=== PATIENT | male | born 1940 | race Caucasian/White ===

== ENCOUNTER 2019-02-11 08:00 | Emergency (ER) | payer MEDICARE ==
[~2019-02-11] VITALS: Ht 180.3 cm; Wt 95.7 kg
--- OUTSIDE RECORDS SUMMARY | 2019-02-11 08:03 | XMS REPORT ---
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 Allergies, Adverse Reactions, Alerts Allergy Name Allergy Type Status Severity Reaction(s) Onset Date Inactive Date Treating Clinician Comments No Known Allergies DA Active U 2018-10-28 00:00:00 No Known Allergies DA Active U 2013-02-14 00:00:00 Medications This patient has no known medications. Results Test Description Test Time Test Comments Text Results Atomic Results Result Comments - XR FLUOROSCOPY 0-60 MIN 2018-12-18 12:18:00 FAX: Oren Benoit [phone] Gray: St: ADM Name: JAZMYNE POWER [facility] : 1940 Age/S: 78/M [address] [place] [address] Unit #: [id number] Loc: [place] [address] Phys: Oren Reed MD Acct: [id number] Dis Date: Status: ADM IN PHONE #: [phone] Exam Date: 12/18/2018 1214 FAX #: [phone] Reason: LUMBAR DISC HERNIATION, LUMBAR STENOSIS EXAMS: CPT CODE: [id number] XR FLUOROSCOPY 0-60 MIN 01487 Intraprocedural fluoroscopy was provided by the Department of Radiology. Any images obtained were interpreted by the surgeon intraoperatively. SL: [id number] at 1218 Reported and signed by: Manpreet Mosher M.D. CC: Oren Reed MD Technologist: RT Lisa(Tiffanie) Trnscrd Date/Time/By: 12/18/2018 (3192) : By: [email or web address] Orig Print D/T: S: 12/18/2018 (1805) PAGE 1 Signed Report PROTHROMBIN TIME 2018-12-15 11:45:00 PROTHROMBIN TIME PATIENT (test code=PTP) 12.1 SECONDS 9.3-12.9 INTERNATIONAL NORMAL RATIO (test code=INR) 1.1 0.8-1.2 TARGET INR BY INDICATION Indication INR1. Prophylaxis of venous thrombosis 2.0 - 3.0 (orthopedic surgery), Prophylaxis of venous thrombosis (other than high-risk surgery), Treatment of Deep Vein Thrombosis/Pulmonary Embolism, Prevention of systemic embolism - Tissue heart valves, Acute Myocardial Infarction (to prevent systemic embolism), Valvular heart disease, Atrial Fibrillation, Bileaflet mechanical valve in aortic position.2. Mechanical prosthetic valves (high risk), 2.5 - 3.5 Presence of Lupus Anticoagulant or Antiphospholipid Antibodies, Prevention of systemic embolism - Acute Myocardial Infarction (to prevent recurrent infarct). THROMBOPLASTIN TIME [id number] 11:45:00* Test Item Value Reference Range Comments THROMBOPLASTIN TIME PARTIAL (test code=PTT) 37.6 Seconds 25.0-39.5 Therapeutic Range: 61.8-83.8 Sec Effective 10/28/2013 COMPREHENSIVE METABOLIC [id number] 11:41:00* Test Item Value Reference Range Comments SODIUM (test code=NA) 138 mEq/L 134-147 POTASSIUM (test code=K) 3.9 mEq/L 3.4-5.0 CHLORIDE (test code=CL) 103 mEq/L 100-108 CARBON DIOXIDE (test code=CO2) 31 mEq/L 21-33 ANION GAP (test code=GAP) 8 0-20 GLUCOSE (test code=GLU) 83 mg/dL 70-110 BLOOD UREA NITROGEN (test code=BUN) 15 mg/dL 7-18 GLOMERULAR FILTRATION RATE (test code=GFR) 81.6 70-80 Units of measure=ml/min/1.73 m2 CREATININE (test code=CREAT) 0.9 mg/dL 0.6-1.3 TOTAL PROTEIN (test code=PROT) 7.2 g/dL 6.4-8.2 ALBUMIN (test code=ALB) 3.90 g/dL 3.4-5.0 CALCIUM (test code=CA) 9.0 mg/dL 8.0-10.5 BILIRUBIN TOTAL (test code=BILT) 1.90 mg/dL 0.0-1.0 SGOT/AST (test code=AST) 17 IUnit/L 15-37 SGPT/ALT (test code=ALT) 32 IUnit/L 15-65 ALKALINE PHOSPHATASE TOTAL (test code=ALKP) 54 IUnit/L 20-125 COMPREHENSIVE METABOLIC [id number] 11:40:00* Test Item Value Reference Range Comments SODIUM (test code=NA) 138 mEq/L 134-147 POTASSIUM (test code=K) 3.9 mEq/L 3.4-5.0 CHLORIDE (test code=CL) 103 mEq/L 100-108 CARBON DIOXIDE (test code=CO2) 31 mEq/L 21-33 ANION GAP (test code=GAP) 8 0-20 GLUCOSE (test code=GLU) 83 mg/dL 70-110 BLOOD UREA NITROGEN (test code=BUN) 15 mg/dL 7-18 GLOMERULAR FILTRATION RATE (test code=GFR) 81.6 70-80 Units of measure=ml/min/1.73 m2 CREATININE (test code=CREAT) 0.9 mg/dL 0.6-1.3 TOTAL PROTEIN (test code=PROT) g/dL 6.4-8.2 ALBUMIN (test code=ALB) 3.90 g/dL 3.4-5.0 CALCIUM (test code=CA) 9.0 mg/dL 8.0-10.5 BILIRUBIN TOTAL (test code=BILT) mg/dL 0.0-1.0 SGOT/AST (test code=AST) 17 IUnit/L 15-37 SGPT/ALT (test code=ALT) 32 IUnit/L 15-65 ALKALINE PHOSPHATASE TOTAL (test code=ALKP) IUnit/L 20-125 CBC W/AUTO [id number] 11:26:00* Test Item Value Reference Range Comments WHITE BLOOD CELL (test code=WBC) 7.23 x10 3/uL 4.5-11.0 RED BLOOD CELL (test code=RBC) 5.83 x10 6/uL 4.00-5.60 HEMOGLOBIN (test code=HGB) 18.6 g/dL 12.5-16.9 HEMATOCRIT (test code=HCT) 58.7 % 37.5-50.7 NOTIFIED OF ANTICOAGULANT MEAN CELL VOLUME (test code=MCV) 100.7 fL 81.0-99.0 MEAN CELL HGB (test code=MCH) 31.9 pg 27.0-33.0 MEAN CELL HGB CONCETRATION (test code=MCHC) 31.7 g/dL 33.0-37.0 RED CELL DISTRIBUTION WIDTH CV (test code=RDW) 14.8 % 11.5-14.5 RED CELL DISTRIBUTION WIDTH SD (test code=RDW-SD) 55.6 fL 37.0-54.0 PLATELET COUNT (test code=PLT) 179 x10 3/uL 150-400 MEAN PLATELET VOLUME (test code=MPV) 9.3 fL 7.0-9.0 NEUTROPHIL % (test code=NT%) 73.5 % 56.0-77.0 IMMATURE GRANULOCYTE % (test code=IG%) 1.7 % 0.0-2.0 LYMPHOCYTE % (test code=LY%) 13.3 % 14.0-32.0 MONOCYTE % (test code=MO%) 9.8 % 4.8-9.0 EOSINOPHIL % (test code=EO%) 1.1 % 0.3-3.7 BASOPHIL % (test code=BA%) 0.6 % 0.0-2.0 NUCLEATED RBC % (test code=NRBC%) 0.0 % 0-0 NEUTROPHIL # (test code=NT#) 5.32 x10 3/uL 2.0-7.6 IMMATURE GRANULOCYTE # (test code=IG#) 0.12 x10 3/uL 0.00-0.03 LYMPHOCYTE # (test code=LY#) 0.96 x10 3/uL 1.0-3.8 MONOCYTE # (test code=MO#) 0.71 x10 3/uL 0.1-0.8 EOSINOPHIL # (test code=EO#) 0.08 x10 3/uL 0.0-0.2 BASOPHIL # (test code=BA#) 0.04 x10 3/uL 0.0-0.2 NUCLEATED RBC # (test code=NRBC#) 0.00 x10 3/uL 0.0-0.1 MANUAL DIFF REQUIRED (test code=MDIFF) NO - XR CHEST 2 [id number] 11:02:00 FAX: Oren Benoit [phone] Gray: St: PRE Name: RYLEE BUNDYER BREANA [facility] : [birth year] Age/S: 78/M [address] [place] [address] Bl Unit #: [id number] Loc: [place] [address] Phys: Oren Reed MD Acct: [id number] Dis Date: Status: PRE IN PHONE #: [phone] Exam Date: 12/15/2018 1056 FAX #: [phone] Reason: LAMINECTOMY EXAMS: CPT CODE: [id number] XR CHEST 2 V 24784 EXAM: XR CHEST 2 VIEWS DATE: 12/15/2018 10:21 AM : 1940; Age: 78 years y/o Male INDICATION: LAMINECTOMY COMPARISON: October 28, 2018 TECHNIQUE: PA and lateral chest radiographs. FINDINGS: Lines, tubes and hardware: None. Lungs and pleura: The lungs are clear. Elevated right hemidiaphragm again seen. No pleural effusion. Heart and mediastinum: The heart size is normal for technique. Vascular calcifications are present at the aorta. Pulmonary vascularity is normal. IMPRESSION: No acute cardiopulmonary process. SL: [id number] at 1102 Reported and signed by: Robin Whitfield D.O. CC: Oren Reed MD Technologist: RT Rayray(R) Trnscrd Date/Time/By: 12/15/2018 (9782) : By: [email or web address] Orig Print D/T: S: 12/15/2018 (6442) PAGE 1 Signed Report - XR CHEST 2 [id number] 13:55:00 FAX: Belen Madden MD [phone] Gray: St: PRE Name: JAZMYNE BUNDY [facility] : [birth year] Age/S: 78/M [address] [place] [address] Blvd Unit #: [id number] Loc: [place] [address] Phys: Belen Singletary MD Acct: [id number] Dis Date: Status: PRE [facility] PHONE #: [phone] Exam Date: 10/28/2018 1341 FAX #: [phone] Reason: PREOP/+ STRESS TEST EXAMS: CPT CODE: [id number] XR CHEST 2 V 25771 2 VIEW CXR H ISTORY: Preop chest x-ray. Positive stress test. Coronary artery disease . COMPARISON: 05/12/2012 chest x-ray. Stable right he midiaphragm elevation. Lungs clear with normal pulmonary vascularity. No pleural abnormalities. Cardiomediastinal silhouette and bony thorax norm al. IMPRESSION: No acute process evident. END IMPRESSION [id number] Electronically Signed by Sinan Rios on at 1939 Reported and signed by: Jim Rios M.D. CC: Belen Rouse Technologist: RT Jazmín(R), RTT Trnctrd Date/Time/By: 10/28/2018 (2871) : By: [email or web address] Orig Print D/T : S: 10/28/2018 (4771) PAGE 1 Sig shea Report BASIC METABOLIC [id number] 13:35:00* Test Item Value Reference Range Comments SODIUM (test code=NA) 138 mEq/L 134-147 POTASSIUM (test code=K) 4.0 mEq/L 3.4-5.0 CHLORIDE (test code=CL) 104 mEq/L 100-108 CARBON DIOXIDE (test code=CO2) 27 mEq/L 21-33 ANION GAP (test code=GAP) 11 0-20 GLUCOSE (test code=GLU) 75 mg/dL 70-110 BLOOD UREA NITROGEN (test code=BUN) 18 mg/dL 7-18 GLOMERULAR FILTRATION RATE (test code=GFR) 81.6 70-80 Units of measure=ml/min/1.73 m2 CREATININE (test code=CREAT) 0.9 mg/dL 0.6-1.3 CALCIUM (test code=CA) 8.8 mg/dL 8.0-10.5 PROTHROMBIN [id number] 13:27:00* Test Item Value Reference Range Comments PROTHROMBIN TIME PATIENT (test code=PTP) 12.1 SECONDS 9.3-12.9 INTERNATIONAL NORMAL RATIO (test code=INR) 1.1 0.8-1.2 TARGET INR BY INDICATION Indication INR1. Prophylaxis of venous thrombosis 2.0 - 3.0 (orthopedic surgery), Prophylaxis of venous thrombosis (other than high-risk surgery), Treatment of Deep Vein Thrombosis/Pulmonary Embolism, Prevention of systemic embolism - Tissue heart valves, Acute Myocardial Infarction (to prevent systemic embolism), Valvular heart disease, Atrial Fibrillation, Bileaflet mechanical valve in aortic position.2. Mechanical prosthetic valves (high risk), 2.5 - 3.5 Presence of Lupus Anticoagulant or Antiphospholipid Antibodies, Prevention of systemic embolism - Acute Myocardial Infarction (to prevent recurrent infarct). CBC W/AUTO [id number] 13:21:00* Test Item Value Reference Range Comments WHITE BLOOD CELL (test code=WBC) 6.96 x10 3/uL 4.5-11.0 RED BLOOD CELL (test code=RBC) 5.83 x10 6/uL 4.00-5.60 HEMOGLOBIN (test code=HGB) 18.5 g/dL 12.5-16.9 HEMATOCRIT (test code=HCT) 57.4 % 37.5-50.7 MEAN CELL VOLUME (test code=MCV) 98.5 fL 81.0-99.0 MEAN CELL HGB (test code=MCH) 31.7 pg 27.0-33.0 MEAN CELL HGB CONCETRATION (test code=MCHC) 32.2 g/dL 33.0-37.0 RED CELL DISTRIBUTION WIDTH CV (test code=RDW) 13.1 % 11.5-14.5 RED CELL DISTRIBUTION WIDTH SD (test code=RDW-SD) 47.9 fL 37.0-54.0 PLATELET COUNT (test code=PLT) 194 x10 3/uL 150-400 MEAN PLATELET VOLUME (test code=MPV) 9.6 fL 7.0-9.0 NEUTROPHIL % (test code=NT%) 68.2 % 56.0-77.0 IMMATURE GRANULOCYTE % (test code=IG%) 0.6 % 0.0-2.0 LYMPHOCYTE % (test code=LY%) 17.5 % 14.0-32.0 MONOCYTE % (test code=MO%) 11.1 % 4.8-9.0 EOSINOPHIL % (test code=EO%) 1.7 % 0.3-3.7 BASOPHIL % (test code=BA%) 0.9 % 0.0-2.0 NUCLEATED RBC % (test code=NRBC%) 0.0 % 0-0 NEUTROPHIL # (test code=NT#) 4.75 x10 3/uL 2.0-7.6 IMMATURE GRANULOCYTE # (test code=IG#) 0.04 x10 3/uL 0.00-0.03 LYMPHOCYTE # (test code=LY#) 1.22 x10 3/uL 1.0-3.8 MONOCYTE # (test code=MO#) 0.77 x10 3/uL 0.1-0.8 EOSINOPHIL # (test code=EO#) 0.12 x10 3/uL 0.0-0.2 BASOPHIL # (test code=BA#) 0.06 x10 3/uL 0.0-0.2 NUCLEATED RBC # (test code=NRBC#) 0.00 x10 3/uL 0.0-0.1 MANUAL DIFF REQUIRED (test code=MDIFF) NO
[2019-02-11] MEDS ORDERED: SODIUM CHLORIDE 0.9% 1000ML 1,000 ML IV STA (08:21)
--- NOTE | 2019-02-11 08:33 | NUR ---
PATIENT TO ROOM 4
--- NOTE | 2019-02-11 09:27 | NUR ---
Note neville in EDM - 02/11/19 at [address] ZAVALETA AT BEDSIDE EVALUATING PATIENT. PER HIS ORDERS. THE IgG 300 ML HE ORDERED IS TO RUN OVER 24 HR PERIOD. PHARMACY SENT A 200ML/100ML BOTTLES. WILL RUN AT 12.5ML/HR (0.289MG/KG/MIN)
[2019-02-11 09:28] LABS: BASOPHILS % 0.2 % (0.0-1.0); EOSINOPHILS # (AUTO) 0.3 (0.0-0.4); EOSINOPHILS % 1.6 % (0.0-6.0); HEMATOCRIT 50.9 % (38.2-49.6); HEMOGLOBIN 17.4 g/dL (14.0-18.0); LYMPHOCYTES # (AUTO) 0.5 (1.0-3.2); LYMPHOCYTES % 2.8 % (18.0-39.1); MEAN CORPUSCULAR HEMOGLOBIN 33.6 pg (28-32); MEAN CORPUSCULAR HGB CONC 34.2 g/dL (31-35); MEAN CORPUSCULAR VOLUME 98.3 fL (81-99); MONOCYTES # (AUTO) 1.2 (0.2-0.8); MONOCYTES % 7.7 % (4.4-11.3); NEUTROPHILS % 87.1 % (38.7-80.0); PLATELET COUNT 165 x10e3/uL (140-360); RED BLOOD COUNT 5.18 x10e6/uL (4.3-5.7)
[2019-02-11 09:38] LABS: INR 0.99; PROTHROMBIN TIME 13.6 seconds (11.9-14.5)
[2019-02-11 09:39] LABS: PARTIAL THROMBOPLASTIN TIME 26.4 seconds (23.8-35.5)
[2019-02-11 09:45] LABS: ALANINE AMINOTRANSFERASE 23 IU/L (0-55); ALBUMIN 3.4 g/dL (3.5-5.0); ALBUMIN/GLOBULIN RATIO 1.2 (0.8-2.0); ALKALINE PHOSPHATASE 48 IU/L (40-150); ANION GAP 13.7 mmol/L (8-16); BLOOD UREA NITROGEN 12 mg/dL (7-26); BUN/CREATININE RATIO 14 (6-25); CALCIUM 9.6 mg/dL (8.4-10.2); CARBON DIOXIDE 27 mmol/L (22-29); CHLORIDE 102 mmol/L (98-107); CREATININE, SERUM 0.84 mg/dL (0.72-1.25); EST GLOMERULAR FILTRATION RATE > 60 ML/MIN (60-); GLUCOSE 111 mg/dL (74-118); POTASSIUM 3.7 mmol/L (3.5-5.1); SODIUM 139 mmol/L (136-145)
[2019-02-11 09:46] LABS: BILIRUBIN,URINE NEGATIVE (NEGATIVE); CLARITY,URINE TURBID (CLEAR); COLOR,URINE RED (YELLOW); KETONES,URINE NEGATIVE (NEGATIVE); LEUKOCYTE ESTERASE ,URINE 1+ (NEGATIVE); NITRITE,URINE NEGATIVE (NEGATIVE); PROTEIN,URINE DIPSTICK 3+ (NEGATIVE); URINE UROBILINOGEN 0.2 mg/dL (0.2 - 1)
[2019-02-11 10:00] LABS: BACTERIA,URINE RARE /HPF; EPITHELIAL CELLS,URINE RARE /LPF; RBC,URINE 21-50 /HPF (0-5)
--- NOTE | 2019-02-11 10:36 | NUR ---
WHILE IN E.R. NO NOTED CLOTS IN TUB OR LOUISE BAG PER PATIENT HE DOES KNOW HOW TO FLUSH THE CATHETER, BUT DID NOT KNOW THAT IS WHAT HE WAS SUPPOSE TO DO, AND HE DID NOT SEE THE CLOTS, HE ONLY SAW BLOOD
--- NOTE | 2019-02-11 11:53 | NUR ---
PATIENT UPSET HE IS STILL HERE. DR. BARLOW SPOKE WITH DR. BALDERRAMA WHO IS IN SURGERY AND HE WANTS TO SEE HIM FIRST BEFORE HE GOES HOME.
--- NOTE | 2019-02-11 12:00 | NUR ---
DR. Jaquan BALDERRAMA AT BEDSIDE IRRIGATING PATIENT LOUISE WITH 650 CC. PULLED OUT SEVERAL SMALL CLOTS. PATIENT RE-INSTRUCTED ON HOW TO IRRIGATE WHEN HE NOTICES CLOTS
== END 2019-02-11 13:00 | disposition home or self-care (01) ==
LOC: ER 08:00
DX: R31.0 Gross hematuria (principal); I10 Essential (primary) hypertension; R01.1 Cardiac murmur, unspecified
CPT/HCPCS: 36415; 80053; 81001; 85025; 85610; 85730; 99284; J7030

== ENCOUNTER 2019-02-13 08:24 | Emergency (ER) | payer MEDICARE ==
[~2019-02-13] VITALS: Ht 180.3 cm; Wt 95.7 kg
[2019-02-13 09:34] LABS: BASOPHILS % 0.4 % (0.0-1.0); EOSINOPHILS # (AUTO) 0.3 (0.0-0.4); HEMATOCRIT 49.3 % (38.2-49.6); LYMPHOCYTES # (AUTO) 0.7 (1.0-3.2); LYMPHOCYTES % 6.2 % (18.0-39.1); MEAN CORPUSCULAR HEMOGLOBIN 33.5 pg (28-32); MEAN CORPUSCULAR HGB CONC 34.5 g/dL (31-35); MEAN CORPUSCULAR VOLUME 97.2 fL (81-99); MONOCYTES % 9.1 % (4.4-11.3); NEUTROPHILS # (AUTO) 8.6 (2.1-6.9); NEUTROPHILS % 80.4 % (38.7-80.0); PLATELET COUNT 159 x10e3/uL (140-360); RED BLOOD COUNT 5.07 x10e6/uL (4.3-5.7); RED CELL DISTRIBUTION WIDTH 13.7 % (11.7-14.4)
[2019-02-13 09:53] LABS: ALANINE AMINOTRANSFERASE 16 IU/L (0-55); ALBUMIN 3.3 g/dL (3.5-5.0); ALBUMIN/GLOBULIN RATIO 1.1 (0.8-2.0); ALKALINE PHOSPHATASE 45 IU/L (40-150); ANION GAP 13.4 mmol/L (8-16); BLOOD UREA NITROGEN 13 mg/dL (7-26); BUN/CREATININE RATIO 16 (6-25); CALCIUM 9.8 mg/dL (8.4-10.2); CARBON DIOXIDE 27 mmol/L (22-29); CHLORIDE 101 mmol/L (98-107); CREATININE, SERUM 0.83 mg/dL (0.72-1.25); EST GLOMERULAR FILTRATION RATE > 60 ML/MIN (60-); GLUCOSE 105 mg/dL (74-118); POTASSIUM 3.4 mmol/L (3.5-5.1); SODIUM 138 mmol/L (136-145)
[2019-02-13 10:05] LABS: CLARITY,URINE SL CLOUDY (CLEAR); COLOR,URINE RED (YELLOW); KETONES,URINE 2+ (NEGATIVE); LEUKOCYTE ESTERASE ,URINE 1+ (NEGATIVE); NITRITE,URINE NEGATIVE (NEGATIVE); PROTEIN,URINE DIPSTICK 3+ (NEGATIVE); URINE UROBILINOGEN 0.2 mg/dL (0.2 - 1)
[2019-02-13 10:06] LABS: AMORPHOUS SEDIMENT,URINE RARE (FEW); BACTERIA,URINE FEW /HPF; BILIRUBIN,URINE 1+ (NEGATIVE); EPITHELIAL CELLS,URINE RARE /LPF; RBC,URINE >50 /HPF (0-5); TRANSITIONAL EPI CELLS,URINE RARE; YEAST,URINE RARE
[2019-02-13] MEDS ORDERED: DITROPAN XL5 MG PO (10:18)
[2019-02-13 11:11] VITALS: BP 139/81
[2019-02-13] MEDS ORDERED: OXYBUTYNIN CHLORIDE XL 5 MG TAB PO NR (11:15)
--- NOTE | 2019-02-13 11:59 | NUR ---
PER MD IRRIGATE BLADDER TILL CLEAR; PT BLADDER IRRIGATED TILL CLEAR WITH NS 500 CC 1 CLOT NOTED DURING IRRIGATION PT TOLERATED IRRIGATION PROCEDURE WITH NO ADVERSE REACTION
[2019-02-14] MEDS ORDERED: OXYBUTYNIN CHLORIDE XL 5 MG TAB PO ONE (09:00)
== END 2019-02-13 12:00 | disposition home or self-care (01) ==
LOC: ER 08:24
DX: R30.0 Dysuria (principal); R39.89 Other symptoms and signs involving the genitourinary system
CPT/HCPCS: 36415; 80053; 81001; 85025; 87086; 99283